=== PATIENT | female | born 1985 | race Caucasian/White ===

== ENCOUNTER 2020-09-08 09:55 | Emergency (ER) | payer OTHER, SELFPAY ==
[2020-09-08 11:46] VITALS: BP 133/74; PULSE 74; RESP 16; TEMP 37.7; O2SAT 100; BMI 32.0
--- NOTE | 2020-09-08 12:42 | US_ITS ---
EXAMINATION: ULTRASOUND PELVIC, COMPLETE CLINICAL INFORMATION: Pelvic pain COMPARISON: Pelvic ultrasound 08/27/2018 TECHNIQUE: Transabdominal and transvaginal grayscale imaging. Spectral Doppler and color Doppler exam was utilized. LMP: IUD FINDINGS: UTERUS: IUD in good position in the endometrial cavity. No fluid collections in the endometrial cavity. (Cannot measure endometrial thickness due to the presence of the IUD.) There is no uterine mass. Uterus is anteverted. Uterus measures 10.6 x 4.8 x 5.7 cm ADNEXA: Ovarian vascularity:Doppler demonstrates both arterial and venous vascular flow in the right and left ovary. No evidence of ovarian torsion. Right Ovary: 2.8 x 2.2 x 1.8 cm. Volume 5.8 mL Left Ovary: 2.6 x 2.1 x 2 cm. Volume 5.7 mL. Corpus luteum cyst in left ovary measuring 1.5 x 1.7 x 1.4 cm. Cul-de-sac: Small volume of fluid. Other: There are mildly dilated loops of bowel in the left lower quadrant IMPRESSION: 1. IUD in good position in the endometrial cavity. 2. No acute abnormality of the pelvis. Normal vascular flow in the ovaries, no ovarian torsion.
[2020-09-08 13:27] LABS: MANUAL DIFF FLAG NO
[2020-09-08 13:32] LABS: Basophils Percent Auto 0.1 % (0-2); Eosinophils Absolute Auto 0.2 X10*3/uL (0.0-0.4); Hemoglobin 12.9 g/dl (12.0-16.0); Imm Gran Abs Auto 0.02 X10*3/uL (0.00-0.03); Imm Gran Pct Auto 0.3 % (0.0-0.4); Lymphocytes Absolute Auto 2.6 X10*3/uL (1.2-4.9); Lymphocytes Percent Auto 35.4 % (20-40); Mean Corpuscular HGB Conc 33.1 g/dl (31.0-35.0); Mean Corpuscular Hemoglobin 30.1 pg (27.0-33.0); Mean Corpuscular Volume 91.1 fL (80-98); Mean Platelet Volume 9.7 fL (9.4-12.3); Monocytes Absolute Auto 0.5 X10*3/uL (0.1-1.2); Monocytes Percent Auto 6.3 % (2-11); Neutrophils Absolute Auto 4.1 X10*3/uL (2.0-8.3); Neutrophils Percent Auto 55.9 % (45-73); Platelet Count 250 X10*3/uL (160-400); Red Blood Count 4.28 X10*6/uL (4.20-5.50); Red Cell Distribution Width 12.2 % (11.0-16.0); White Blood Count 7.4 X10*3/uL (4.8-10.8)
[2020-09-08 13:41] LABS: Glucose Urine UA NEG (NEG); Leukocyte Esterase Urine NEG (NEG); Nitrite Urine NEG (NEG); Specific Gravity - Urine 1.015 (1.005-1.025); Urine Blood TRACE (NEG); Urine Ketones NEG (NEG); Urine Protein NEG (NEG-TRACE)
[2020-09-08 13:44] LABS: Appearance Urine CLEAR; Color Urine YELLOW
[2020-09-08 13:45] LABS: UPreg QC Valid YES; Urine Pregnancy NEGATIVE (NEGATIVE)
[2020-09-08 13:49] LABS: RBC Urine 0-2 /HPF (0); Renal Epithelial Cells Urine TRACE /LPF; Squamous Epithelial Cell Urine 1+ /LPF; WBC Urine 0 /HPF (0-4)
[2020-09-08 13:57] LABS: Alanine Aminotransferase 12 U/L (0-31); Albumin Level 4.5 g/dL (3.5-5.0); Alkaline Phosphatase 52 U/L (39-117); Anion Gap 10 (12-20); Aspartate Amino Transferase 12 U/L (5-31); Bilirubin Total 0.4 mg/dL (0.0-1.0); Blood Urea Nitrogen 10 mg/dL (9-16); Calcium 9.2 mg/dL (8.4-10.2); Carbon Dioxide 26 mmol/L (22-29); Chloride 105 mmol/L (96-108); Creatinine Clr Calc Pharmacy 121.2; Estimated Glomerular Filt Rate > 60; Glucose Random 91 mg/dL (60-115); Potassium 3.9 mmol/l (3.3-5.1); Sodium 137 mmol/L (135-145); Total Protein 7.1 g/dL (6.5-8.0)
[2020-09-08 13:58] LABS: Alanine Aminotransferase 12 U/L (0-31); Albumin Level 4.5 g/dL (3.5-5.0); Alkaline Phosphatase 51 U/L (39-117); Aspartate Amino Transferase 12 U/L (5-31); Bilirubin Direct 0.2 mg/dL (0.0-0.5); Bilirubin Total 0.4 mg/dL (0.0-1.0); Total Protein 7.1 g/dL (6.5-8.0)
--- NOTE | 2020-09-08 16:20 | ED_ITS ---
HPI - Abdominal Pain General Chief Complaint: Abdominal Pain Stated Complaint: ABD PAIN Time Seen by Provider: 09/08/20 12:42 Source: patient Mode of arrival: ambulatory Limitations: no limitations History of Present Illness HPI narrative: otherwise healthy 34-year-old female presenting today with complaint of pelvic pain which she has had on off for the past 2 years since she got her IUD in place states she has tried to call her PCP and does not have a heavy cleaner in the area to have the IUD removed. States she has been having intermittent pain with intercourse for the same duration of time. No concern fo r STI. States she is . No nausea vomiting diarrhea. No dysuria. No rash or lesion. MD elicited complaint: abdominal pain Onset (ago): year(s) Location: pelvis Severity: moderate Quality: aching Treatments prior to arrival: NSAIDs Related Data Previous Rx's Medication Instructions Recorded ibuprofen 800 mg PO Q8H PRN #20 tab 09/08/20 oxycodone-acetaminophen [Percocet] 1 tab PO Q8H PRN #10 tab 09/08/20 Allergies Allergy/AdvReac Type Severity Reaction Status Date / Time No Known Allergies Allergy Verified 09/08/20 12:42 Review of Systems Review of Systems Constitutional: No Weight loss, No Fever, No Chills, No Night Sweats, No Fatigue, No Malaise ENT/Mouth: No Hearing loss, No Ear Pain, No Nasal Congestion, No Sinus Pain, No Hoarseness, No sore throat, No Rhinorrhea, No Swallowing Difficulty Eyes: No Eye Pain, No Swelling, No Redness, No Foreign Body, No Discharge, No Vision Changes Cardiovascular: No Chest Pain, No SOB, No Dyspnea on Exertion, No Orthopnea, No Edema, No Palpitations Respiratory: No Cough, No Sputum, No Wheezing, No Smoke Exposure, No Dyspnea Gastrointestinal: No Nausea, No Vomiting, No Diarrhea, No Constipation, Pelvic pain , No Hematochezia, No Melena Genitourinary: no irregular bleeding, No Dysuria, No Urinary Frequency, No He maturia, No Urinary Incontinence, No Urgency, No Flank Pain, No Urinary Flow Changes, No Hesitancy Musculoskeletal: No joint pain, No Myalgias, No Joint Swelling Skin: No Skin Lesions, No rash Neuro: No Weakness, No Numbness, No Paresthesias, No Loss of Consciousness, No Dizziness, No Headache Psych: No Anxiety/Panic, No Depression, No SI/HI/AH/VH, No Social Issues, Heme/Lymph: No Bruising, No Bleeding,No Lymphadenopathy Endocrine: No Polyuria, No Polydipsia, No Temperature Intolerance Yes all other systems are reviewed and are negative Physical Exam Vital Signs: Vital Signs: Vital Signs Temp Pulse Resp BP Pulse Ox 09/08/20 11:46 100 F 74 16 133/74 100 Body Mass Index 32.0 Const: General: cooperative and healthy appearing; No acute distress or intoxicated appearing Nutritional Appearance: average body habitus Orientation/consciousness: patient oriented x3 HENMT: Head: Yes normal to inspection Ears: hearing grossly normal bilaterally Eyes: General: appearance normal, both eyes and all related structures Visual Fulton: normal visual fulton by confrontation Neck: Neck: Yes normal visual inspection and No tender Thyroid: Thyroid normal Chest: Chest palpation & inspection: normal inspection of the chest Resp: Effort & Inspection: normal respiratory effort Cardio: Jugular venous distension: no JVD GI: Inspection: Yes normal to inspection Percussion: Yes normal to percussion Auscultation: normal bowel sounds : Other: Tech Mehnaz General: Yes no CVA tenderness External Female Exam: normal external appearance and normal appearance of the urethra Speculum Exam - Vagina: normal appearance of the vagina, normal palpation, normal vaginal discharge ( minimal clear), no cysts, not erythematous, no lesions, No vaginal bleeding, No tissue present in vagina, no masses, no swelling and nontender Bimanual exam- vagina & uterus: normal palpation OB/external & speculum: no tissue noted in vagina and vaginal bleeding Back/Spine/Pelvis: Back: no CVA tenderness Skin: General skin exam: no rashes or lesions noted Neuro: General: patient oriented x3 Extrem: General: Yes normal to inspection Course Course Course Narrative: resting comfortably in the ED. Labs overall stable. UA negative. Urine negative. Ultrasound shows IUD in good position in the endometrial cavity. No acute abnormality of the pelvis. Normal vascular flow of the ovaries without evidence of ovarian torsion. Will refer to Dr. Delgado supervisor printing shop for further evaluation treatment to have her IUD removed. I did not the proper equipment to remove this here. Patient does not have any evidence of infectious process/ PID. Will be discharged home with pain medication and return/ follow-up precautions. Stable for discharge. MDM - Abdominal Pain Differential Diagnosis Differential diagnosis: Likely abdominal pain and ovarian cyst; Unlikely aortic dissection, acute appendicitis, bowel perforation, calculus of kidney, constipation, diverticulitis, gastroenteritis, gastritis, mesenteric ischemia, peptic ulcer disease and small bowel obstruction Lab Data Result diagrams: 09/08/20 13:18 09/08/20 13:18 Labs: Lab Results 09/08/20 09/08/20 09/08/20 Range/Units 13:14 13:14 13:14 WBC (4.8-10.8) X10*3/uL RBC (4.20-5.50) X10*6/uL Hgb (12.0-16.0) g/dl Hct (37-47) % MCV (80-98) fL MCH (27.0-33.0) pg MCHC (31.0-35.0) g/dl RDW (11.0-16.0) % Plt Count (160-400) X10*3/uL MPV (9.4-12.3) fL Immature Gran % (Auto) (0.0-0.4) % Neut % (Auto) (45-73) % Lymph % (Auto) (20-40) % [place] % (Auto) (2-11) % Eos % (Auto) (0-4) % Baso % (Auto) (0-2) % Lymph # (Auto) (1.2-4.9) X10*3/uL [place] # (Auto) (0.1-1.2) X10*3/uL Eos # (Auto) (0.0-0.4) X10*3/uL Baso # (Auto) (0.0-0.2) X10*3/uL Abs Immat Gran (auto) (0.00-0.03) X10*3/uL Absolute Neuts (auto) (2.0-8.3) X10*3/uL Absolute Nucleated RBC (0.0-0.012) X10*3/uL Nucleated RBC % (auto) (0.0-0.2) /100WBC Hold Blue Top Sodium (135-145) mmol/L Potassium (3.3-5.1) mmol/l Chloride (96-108) mmol/L Carbon Dioxide (22-29) mmol/L Anion Gap (12-20) BUN (9-16) mg/dL Creatinine (0.5-1.4) mg/dL Estim Creat Clear Calc Estimated GFR Random Glucose (60-115) mg/dL Calcium (8.4-10.2) mg/dL Total Bilirubin (0.0-1.0) mg/dL Direct Bilirubin (0.0-0.5) mg/dL AST (5-31) U/L ALT (0-31) U/L Alkaline Phosphatase (39-117) U/L Total Protein (6.5-8.0) g/dL Albumin (3.5-5.0) g/dL Urine Color YELLOW Urine Appearance CLEAR Urine pH 7.0 (5.0-8.0) Ur Specific [place] 1.015 (1.005-1.025) Urine Protein NEG (NEG-TRACE) MG/DL Urine Glucose (UA) NEG (NEG) MG/DL Urine Ketones NEG (NEG) MG/DL Urine Blood TRACE (NEG) Urine Nitrite NEG (NEG) Ur Leukocyte Esterase NEG (NEG) Urine RBC 0-2 (0) /HPF Urine WBC 0 (0-4) /HPF Ur Squamous Epith Cells 1+ /LPF Ur Renal Epithelial Cell TRACE /LPF Urine Bacteria NONE /LPF Urine Test NEGATIVE (NEGATIVE) Jennifer species DNA Cancelled Gardnerella DNA Probe Cancelled Trichomonas DNA Probe Cancelled 09/08/20 09/08/20 09/08/20 Range/Units 13:18 13:18 13:18 WBC 7.4 (4.8-10.8) X10*3/uL RBC 4.28 (4.20-5.50) X10*6/uL Hgb 12.9 (12.0-16.0) g/dl Hct 39.0 (37-47) % MCV 91.1 (80-98) fL MCH 30.1 (27.0-33.0) pg MCHC 33.1 (31.0-35.0) g/dl RDW 12.2 (11.0-16.0) % Plt Count 250 (160-400) X10*3/uL MPV 9.7 (9.4-12.3) fL Immature Gran % (Auto) 0.3 (0.0-0.4) % Neut % (Auto) 55.9 (45-73) % Lymph % (Auto) 35.4 (20-40) % [place] % (Auto) 6.3 (2-11) % Eos % (Auto) 2.0 (0-4) % Baso % (Auto) 0.1 (0-2) % Lymph # (Auto) 2.6 (1.2-4.9) X10*3/uL [place] # (Auto) 0.5 (0.1-1.2) X10*3/uL Eos # (Auto) 0.2 (0.0-0.4) X10*3/uL Baso # (Auto) 0.0 (0.0-0.2) X10*3/uL Abs Immat Gran (auto) 0.02 (0.00-0.03) X10*3/uL Absolute Neuts (auto) 4.1 (2.0-8.3) X10*3/uL Absolute Nucleated RBC 0.000 (0.0-0.012) X10*3/uL Nucleated RBC % (auto) 0.0 (0.0-0.2) /100WBC Hold Blue Top SEE NOTE Sodium 137 (135-145) mmol/L Potassium 3.9 (3.3-5.1) mmol/l Chloride 105 (96-108) mmol/L Carbon Dioxide 26 (22-29) mmol/L Anion Gap 10 L (12-20) BUN 10 (9-16) mg/dL Creatinine 0.65 (0.5-1.4) mg/dL Estim Creat Clear Calc 121.2 Estimated GFR > 60 Random Glucose 91 (60-115) mg/dL Calcium 9.2 (8.4-10.2) mg/dL Total Bilirubin 0.4 (0.0-1.0) mg/dL Direct Bilirubin (0.0-0.5) mg/dL AST 12 (5-31) U/L ALT 12 (0-31) U/L Alkaline Phosphatase 52 (39-117) U/L Total Protein 7.1 (6.5-8.0) g/dL Albumin 4.5 (3.5-5.0) g/dL Urine Color Urine Appearance Urine pH (5.0-8.0) Ur Specific [place] (1.005-1.025) Urine Protein (NEG-TRACE) MG/DL Urine Glucose (UA) (NEG) MG/DL Urine Ketones (NEG) MG/DL Urine Blood (NEG) Urine Nitrite (NEG) Ur Leukocyte Esterase (NEG) Urine RBC (0) /HPF Urine WBC (0-4) /HPF Ur Squamous Epith Cells /LPF Ur Renal Epithelial Cell /LPF Urine Bacteria /LPF Urine Test (NEGATIVE) Jennifer species DNA Gardnerella DNA Probe Trichomonas DNA Probe 09/08/20 Range/Units 13:18 WBC (4.8-10.8) X10*3/uL RBC (4.20-5.50) X10*6/uL Hgb (12.0-16.0) g/dl Hct (37-47) % MCV (80-98) fL MCH (27.0-33.0) pg MCHC (31.0-35.0) g/dl RDW (11.0-16.0) % Plt Count (160-400) X10*3/uL MPV (9.4-12.3) fL Immature Gran % (Auto) (0.0-0.4) % Neut % (Auto) (45-73) % Lymph % (Auto) (20-40) % [place] % (Auto) (2-11) % Eos % (Auto) (0-4) % Baso % (Auto) (0-2) % Lymph # (Auto) (1.2-4.9) X10*3/uL [place] # (Auto) (0.1-1.2) X10*3/uL Eos # (Auto) (0.0-0.4) X10*3/uL Baso # (Auto) (0.0-0.2) X10*3/uL Abs Immat Gran (auto) (0.00-0.03) X10*3/uL Absolute Neuts (auto) (2.0-8.3) X10*3/uL Absolute Nucleated RBC (0.0-0.012) X10*3/uL Nucleated RBC % (auto) (0.0-0.2) /100WBC Hold Blue Top Sodium (135-145) mmol/L Potassium (3.3-5.1) mmol/l Chloride (96-108) mmol/L Carbon Dioxide (22-29) mmol/L Anion Gap (12-20) BUN (9-16) mg/dL Creatinine (0.5-1.4) mg/dL Estim Creat Clear Calc Estimated GFR Random Glucose (60-115) mg/dL Calcium (8.4-10.2) mg/dL Total Bilirubin 0.4 (0.0-1.0) mg/dL Direct Bilirubin 0.2 (0.0-0.5) mg/dL AST 12 (5-31) U/L ALT 12 (0-31) U/L Alkaline Phosphatase 51 (39-117) U/L Total Protein 7.1 (6.5-8.0) g/dL Albumin 4.5 (3.5-5.0) g/dL Urine Color Urine Appearance Urine pH (5.0-8.0) Ur Specific [place] (1.005-1.025) Urine Protein (NEG-TRACE) MG/DL Urine Glucose (UA) (NEG) MG/DL Urine Ketones (NEG) MG/DL Urine Blood (NEG) Urine Nitrite (NEG) Ur Leukocyte Esterase (NEG) Urine RBC (0) /HPF Urine WBC (0-4) /HPF Ur Squamous Epith Cells /LPF Ur Renal Epithelial Cell /LPF Urine Bacteria /LPF Urine Test (NEGATIVE) Jennifer species DNA Gardnerella DNA Probe Trichomonas DNA Probe Imaging Data Pelvic ultrasound: Radiologist's impression: [place] [id number] Ultrasound Report Signed Patient: Shannon Turner#: [id number] : 1985Acct:[id number] Age/Sex: 34 / FADM Date: 09/08/20 Loc: .ED Attending Dr: Ordering Physician: Nikolay Burns NP Date of Service: 09/08/20 Procedure(s): US pelvic complete Accession Number(s): [id number] cc: Nikolay Burns NP~ EXAMINATION: ULTRASOUND PELVIC, COMPLETE CLINICAL INFORMATION: Pelvic pain COMPARISON: Pelvic ultrasound 08/27/2018 TECHNIQUE: Transabdominal and transvaginal grayscale imaging. Spectral Doppler and color Doppler exam was utilized. LMP: IUD FINDINGS: UTERUS: IUD in good position in the endometrial cavity. No fluid collections in the endometrial cavity. (Cannot measure endometrial thickness due to the presence of the IUD.) There is no uterine mass. Uterus is anteverted. Uterus measures 10.6 x 4.8 x 5.7 cm ADNEXA: Ovarian vascularity:Doppler demonstrates both arterial and venous vascular flow in the right and left ovary. No evidence of ovarian torsion. Right Ovary: 2.8 x 2.2 x 1.8 cm. Volume 5.8 mL Left Ovary: 2.6 x 2.1 x 2 cm. Volume 5.7 mL. Corpus luteum cyst in left ovary measuring 1.5 x 1.7 x 1.4 cm. Cul-de-sac: Small volume of fluid. Other: There are mildly dilated loops of bowel in the left lower quadrant IMPRESSION: 1. IUD in good position in the endometrial cavity. 2. No acute abnormality of the pelvis. Normal vascular flow in the ovaries, no ovarian torsion. Dictated By:HOLLY MEDINA MD Signed By:<Electronically signed by HOLLY MEDINA MD in OV>09/08/20 1505 DD/ 1242 TD/TT: Oven Equipment Repairer: LASHONDA Discharge Plan Discharge Clinical Impression: Pelvic pain Patient Disposition: Home, Self-Care Instructions: Pelvic Pain in Women (ED) Prescriptions: New ibuprofen 800 mg tablet 800 mg PO Q8H PRN (Reason: pain) Qty: 20 RF: 0 oxycodone-acetaminophen [Percocet] 5-325 mg tablet 1 tab PO Q8H PRN (Reason: pain) Qty: 10 RF: 0 Referrals: Noam Sparrow FNP-[facility] [Primary Care Provider] - 1 week Krzysztof Delgado MD [Physician] - 5 days ( Call for appointment) [facility] Past Medical History Attestation statement: The following information was validated with the patient. Medical History (Updated 09/08/20 @ 16:27 by Nikolay Burns NP) delivery delivered No known health problems Social History Social History Advance Directives: No Advance Directives Information Provided: No
[2020-09-09 09:32] LABS: BV Int Neg Control Negative (Negative); BV Int Pos Control Positive (Positive)
== END 2020-09-08 16:53 | disposition home or self-care (01) ==
PROVIDERS: Nurse Practitioner Primary Care; Emergency Provider Emergency Medicine; PCP Nurse Practitioner Family
DX: R10.2 Pelvic and perineal pain (principal)
CPT/HCPCS: 36415; 76830; 76856; 80053; 80076; 81001; 81025; 85025; 87480; 87510; 87660; 96360; 99283; 99284

== ENCOUNTER → 2020-09-12 12:47 | Outpatient (BNVA) | payer OTHER, SELFPAY | PROVIDERS: PCP Nurse Practitioner Family; Referring Provider Nurse Practitioner Family; Visit Provider Advanced Practice Midwife | DX: Z76.89 Persons encountering health services in other specified circumstances (principal) ==

== ENCOUNTER 2020-09-15 13:52 | Outpatient (REF) | payer OTHER, SELFPAY ==
[2020-09-16 15:27] LABS: CT PCR NOT DETECTED (Not Detect.); NG PCR NOT DETECTED (Not Detect.)
[2020-09-28 18:17] LABS: HPV mRNA E6/E7 Not Detected (Not Detected)
== END 2020-09-15 13:53 | disposition home or self-care (01) ==
LOC: HO.LAB 13:52
PROVIDERS: PCP Nurse Practitioner Family; Visit Provider Obstetrics & Gynecology
DX: Z30.432 Encounter for removal of intrauterine contraceptive device (principal); T83.9XXA Unspecified complication of genitourinary prosthetic device, implant and graft, initial encounter; N92.1 Excessive and frequent menstruation with irregular cycle; R10.2 Pelvic and perineal pain
CPT/HCPCS: 81025; 87491; 87591; 87624; 88142; 99213

== ENCOUNTER 2020-09-22 14:52 | Outpatient (REF) | payer OTHER, SELFPAY | END 2020-09-22 14:53 | disposition home or self-care (01) | LOC: HO.US 14:52 | PROVIDERS: Visit Provider Obstetrics & Gynecology | DX: Z13.89 Encounter for screening for other disorder (principal) ==

== ENCOUNTER 2020-10-07 06:50 | Day surgery (SDC) | payer OTHER, SELFPAY ==
[2020-10-03 13:57] VITALS: BMI 31.8
--- NOTE | 2020-10-05 14:38 | HO.ANESPROP2 ---
Documented by User: Melissa Cardenas 10/05/20 14:39 HPI - Anesthesia Eval Consult details Narrative: 34yo F for Hysteroscopy with IUD Removal PMFSH Past Medical History Medical History delivery delivered No known health problems PONV (postoperative nausea and vomiting) Family History Family History Mother Diabetes mellitus Father Diabetes mellitus Surgical History Surgical History H/O breast augmentation History of abdominoplasty Hx of section Social History Social History Alcohol intake: current Alcohol intake frequency: a few times a month Smoking Status: Never smoker Use of substances other than those prescribed or required for medical reasons: No Advance Directives: No Advance Directives Information Provided: No Advance Directives on File: No Sexual orientation: Straight/Heterosexual Gender identity: female Meds Allergies Allergy/AdvReac Type Severity Reaction Status Date / Time No Known Allergies Allergy Verified 09/15/20 14:20 Exam Exam Date and Time: October 05, 2020 1438 Height,Weight and Vital Signs: Height 5 ft 2 in Weight 78.925 kg Pertinent Lab Results Pertinent Lab Results: Laboratory Tests 09/08/20 09/08/20 13:18 13:18 WBC 7.4 Hgb 12.9 Hct 39.0 Plt Count 250 Sodium 137 Potassium 3.9 Chloride 105 Carbon Dioxide 26 BUN 10 Creatinine 0.65 Assessment and Plan Assessment Anesthesia Assessment: Chart Reviewed Documented by User: Joanne Dickerson 10/07/20 08:05 PMFSH Past Medical History Medical History delivery delivered No known health problems PONV (postoperative nausea and vomiting) Family History Family History Mother Diabetes mellitus Father Diabetes mellitus Surgical History Surgical History H/O breast augmentation History of abdominoplasty Hx of section Social History Social History Alcohol intake: current Alcohol intake frequency: a few times a month Smoking Status: Never smoker Use of substances other than those prescribed or required for medical reasons: No Advance Directives: No Advance Directives Information Provided: No Advance Directives on File: No Sexual orientation: Straight/Heterosexual Gender identity: female Meds Allergies Allergy/AdvReac Type Severity Reaction Status Date / Time No Known Allergies Allergy Verified 09/15/20 14:20 Exam Airway Mallampati Class: I TM Dist: >3cm Neck ROM: Full Loose/Missing/Broken Teeth: No Heart: RRR Lungs: CTA Assessment and Plan Assessment Anesthesia Assessment: Anesthesia Plan Discussed and Chart Reviewed Final Anesthetic Review NPO: Yes ASA Class: I Final Preanesthetic Review: Meds/Allgs Chart Reviewed, Consent Obtained/Reviewed and Anes Risks/Benef Reviewed Patient Risk: Low Procedure Risk: Low Anesthetic Plan Anesthetic Plan: GA Disposition: Standard PACU
[2020-10-07 06:55] VITALS: BP 102/57; PULSE 58; RESP 20; TEMP 36.6; BMI 31.8
[2020-10-07 07:03] LABS: UPreg QC Valid YES; Urine Pregnancy NEGATIVE (NEGATIVE)
[2020-10-07] MEDS: Acetaminophen 325 MG TABLET 650 MG PO (07:15)
[2020-10-07] MEDS: Scopolamine 1.5 MG PATCH.TD.3 TRANSDERMA (07:18)
[2020-10-07] MEDS: Lactated Ringers 1,000 ML 100 ML IVCONT (07:18)
--- NOTE | 2020-10-07 07:36 | MHC.SHP ---
Pre-Procedural Eval Section A The patient is an INPATIENT: No Changes since office visit: No Cold of Flu in the past 2 weeks, No New Medical Problems, No Changes in Medication and No Patient answered all questions The History & Physical has been completed within 30 days and I have reviewed it.: Yes Section B Chief Complaint: Complication of Implant Allergies: Allergies Allergy/AdvReac Type Severity Reaction Status Date / Time No Known Allergies Allergy Verified 09/15/20 14:20 Plan Diagnosis/Plan: Unchanged Patient has been examined and remains a candidate for the planned procedure
--- NOTE | 2020-10-07 08:37 | PM.OP ---
Brief Operative Note Date of Service: 10/07/20 Pre-op diagnosis: IUD complication, lost string Post-op diagnosis: same Procedure: Hysteroscopic IUD removal Surgeon: Krzysztof Delgado MD Anesthesia: MAC Estimated blood loss (mL): 0 Pathology: other (Endometrial Scrapping. Polyp) Condition: stable Disposition: PACU
--- NOTE | 2020-10-07 08:39 | W.PM.OPN ---
Operative Note Operative Note Date of Service: 10/07/20 Narrative: Preop Diagnosis: IUD complication, lost string Operation: Diagnostic Hysteroscopic IUD removal Post Op Diagnosis: IUD and string in utero QBL: Minimal Anesthesia: MAC Surgeon: Krzysztof Delgado MD Engine Dispatcher: None Complication: None Pathology: None Procedure: The patient was put in the dorsal lithotomy position, scrubbed, and draped in the usual manner. A sterile speculum was inserted in the patient's vagina. The anterior lip of the cervix was grasped with a single tooth tenaculum. The cervix was dilated up to 5 mm, then the scope was inserted in the patient's uterus. Inspection revealed IUD & its string in utero. A hysteroscopic grasper was introduced through the operative channel, the string grasped and IUD pulled out of the uterine cavity with no complications. At the end of the procedure, all instruments were taken out of the patient uterine and vaginal cavity. The single tooth tenaculum was removed and homeostasis was assured using pressure. The patient tolerated the procedure well and was transferred to the PACU in a stable condition.
[2020-10-07 08:47] VITALS: BP 89/44; PULSE 65; RESP 14; TEMP 36.1; O2SAT 96
[2020-10-07 08:52] VITALS: BP 88/43; PULSE 57; RESP 16; O2SAT 97
[2020-10-07 08:57] VITALS: BP 92/49; PULSE 57; RESP 16; O2SAT 95
[2020-10-07 09:02] VITALS: BP 106/57; PULSE 75; RESP 16; O2SAT 97
--- NOTE | 2020-10-07 09:05 | HO.POSTANES ---
Post Anesthesia Evaluation Post Anesthesia Evaluation Vital Signs: Vital Signs Temp Pulse Resp BP Pulse Ox 10/07/20 09:02 75 16 106/57 L 97 10/07/20 08:57 57 16 92/49 L 95 10/07/20 08:52 57 16 88/43 L 97 10/07/20 08:47 97.0 F 65 14 89/44 L 96 10/07/20 06:55 97.9 F 58 20 102/57 L Anesthesia: General Mental Status: Awake Pain Control: Satisfactory Nausea/Vomiting: None Hydration: Adequate Anesthesia-Related Issues: No Anes. Related Issues
[2020-10-07 09:17] VITALS: BP 104/53; PULSE 57; RESP 16; O2SAT 100
== END 2020-10-07 09:42 | disposition home or self-care (01) ==
PROVIDERS: Nurse Practitioner; PCP Nurse Practitioner Family; Visit Provider Obstetrics & Gynecology
PROC: 0UJD8ZZ Inspection of Uterus and Cervix, Via Natural or Artificial Opening Endoscopic (ICD-10-PCS; CPT 58555; principal; 2020-10-07 08:20)
DX: T83.32XA Displacement of intrauterine contraceptive device, initial encounter (principal); Y76.8 Miscellaneous obstetric and gynecological devices associated with adverse incidents, not elsewhere classified; Y92.9 Unspecified place or not applicable
CPT/HCPCS: 58562; 81025; J1100; J1885; J2250; J2405; J2765; J3010